=== PATIENT | female | born 1990 | race Hispanic/Latino ===

== ENCOUNTER 2017-04-18 19:53 | Observation (INO) | payer OTHER ==
[2017-04-18 20:09] VITALS: BP 135/92; PULSE 71; RESP 16; TEMP 98.2; O2SAT 100
--- NOTE | 2017-04-18 21:23 | ED PDOC ---
HPI: General Adult Time Seen by Provider: 04/18/17 20:07 Chief Complaint (Nursing): Eye Problem History Per: Patient Additional Complaint(s): Pt. states at approximately 1930 she was lying down when she suddenly developed L eye blurry vision which she describes as "squiggly lines." Symptoms lasted for approximately 30 minutes and resolved spontaneously. Pt. states 2 days ago she was having neck pain which prompted her to go to the chiropractor who performed an "adjustment" on her neck. Denies weakness, trauma, eye pain, fever. Past Medical History Reviewed: Historical Data, Nursing Documentation, Vital Signs Vital Signs: Last Vital Signs Temp 98.2 F 04/18/17 20:03 Pulse 71 04/18/17 20:03 Resp 16 04/18/17 20:03 BP 135/92 H 04/18/17 20:03 Pulse Ox 100 04/18/17 22:26 - Family History Family History: States: No Known Family Hx - Allergies Allergies/Adverse Reactions: Allergies Allergy/AdvReac Type Severity Reaction Status Date / Time No Known Allergies Allergy Verified 04/18/17 20:03 Review of Systems ROS Statement: Except As Marked, All Systems Reviewed And Found Negative Eyes: Positive for: Vision Change Physical Exam - Reviewed Nursing Documentation Reviewed: Yes Vital Signs Reviewed: Yes - Physical Exam Appears: Positive for: Well, Non-toxic, No Acute Distress Head Exam: Positive for: ATRAUMATIC, NORMAL INSPECTION, NORMOCEPHALIC Skin: Positive for: Normal Color, Warm. Negative for: Rash Eye Exam: Positive for: EOMI (without pain), PERRL, Conjunctival injection (b/l eyes). Negative for: Periorbital swelling, Periorbital tenderness ENT: Positive for: TM Is/Are (non-erythematous, non-bulging b/l), Pharyngeal Erythema Neck: Positive for: Normal, Painless ROM Cardiovascular/Chest: Positive for: Regular Rate, Rhythm Respiratory: Positive for: CNT, Normal Breath Sounds Gastrointestinal/Abdominal: Positive for: Normal Exam, Soft. Negative for: Tenderness Back: Positive for: Normal Inspection Extremity: Positive for: Normal ROM Neurologic/Psych: Positive for: Alert, Oriented - Laboratory Results Result Diagrams: 04/18/17 21:05 04/18/17 21:05 - ECG O2 Sat by Pulse Oximetry: 100 - Progress ED Course And Treament: Pt. evaluated by Dr. Bermeo immediately after initial encounter. Plan was made to r/o dissection due to chiropractic manipulation. Labs ordered. CTA head/neck, ct head w/o contrast ordered. ED OBSERVATION Date of observation admission: 04/18/17 Time of observation admission: 20:57 - Observation admission statement Patient is being placed in observation because:: L eye blurry vision - Progress Note Progress Note: 04/18/17 22:26 Pt. in no distress. Reports vision is still normal. 04/18/17 23:58 Dr. Bermeo discussed case with Dr. Newton, neurologist forest fire prevention specialist, who states if CT' s are normal pt. can be discharged with dx of ocular migraine despite having no headache. Disposition - Clinical Impression Clinical Impression: Vitreous floaters of left eye - Patient ED Disposition Is Patient to be Admitted: Transfer of Care (Signed out to Dianne BAEZ pending CT results.) - Disposition Disposition Time: 00:00 Condition: STABLE
[2017-04-18 21:28] LABS: BASO # 0.1 K/uL (0.0-0.2); BASO % 0.6 % (0.0-2.0); EOS # 0.1 K/uL (0.0-0.7); EOS % 1.2 % (0.0-4.0); HEMATOCRIT 37.1 % (34.0-47.0); LYMPH # 2.5 K/uL (1.0-4.3); LYMPH % 27.4 % (20.0-40.0); MEAN CELL VOLUME 87.9 fl (81.0-99.0); MEAN CORPUSCULAR HEMOGLOBIN 29.2 pg (27.0-31.0); MEAN CORPUSCULAR HGB CONC 33.2 g/dL (33.0-37.0); MEAN PLATELET VOLUME 8.1 fl (7.2-11.7); MONO # 0.8 K/uL (0.0-0.8); MONO % 9.1 % (0.0-10.0); NEUT # 5.7 K/uL (1.8-7.0); NEUT % 61.7 % (50.0-75.0); RED CELL DISTRIBUTION WIDTH 14.7 % (11.5-14.5); WHITE BLOOD COUNT 9.3 K/uL (4.8-10.8)
[2017-04-18 21:39] LABS: ALB/GLOB RATIO 1.6 (1.0-2.1); ALKALINE PHOSPHATASE 33 U/L (38-126); ALT/SGPT 29 U/L (9-52); AST/SGOT 23 U/L (14-36); BILIRUBIN,TOTAL 0.8 mg/dl (0.2-1.3); BLOOD UREA NITROGEN 25 mg/dl (7-17); CALCIUM 9.2 mg/dL (8.4-10.2); CARBON DIOXIDE 25 mmol/L (22-30); CHLORIDE 104 mmol/L (98-107); GFR AFRICAN-AMERICAN > 60; GLUCOSE,RANDOM 90 mg/dL (65-105); POTASSIUM 4.4 MMOL/L (3.6-5.0); SODIUM 139 mmol/l (132-148); TOTAL PROTEIN 7.2 G/DL (6.3-8.2)
[2017-04-18 21:49] LABS: PARTIAL THROMBOPLASTIN TIME 29.6 Seconds (25.6-37.1)
[2017-04-18] MEDS ORDERED: Sodium Chloride 0.9% 1,000 ML IV STA (22:21)
--- NOTE | 2017-04-18 23:42 | ED PDOC ---
HPI: General Adult Time Seen by Provider: 04/18/17 20:07 Chief Complaint (Nursing): Eye Problem Chief Complaint (Provider): Visual Disturbances History Per: Patient History/Exam Limitations: no limitations Onset/Duration Of Symptoms: Hrs (earlier today) Have you had recent travel within the past 21 days to any of the following countries: [place], [place], [place] or [place]?: No Current Symptoms Are (Timing): Still Present Additional Complaint(s): 26 year old female presents to ED with complaints of visual disturbances since earlier today. Describes disturbances as blurry lines and flashes in the visual field. Notes that she also has neck pain and recently had cervical manipulation by chiropractor x2 days ago. (-) headache or peripheral weakness. PCP: None Past Medical History Reviewed: Historical Data, Nursing Documentation, Vital Signs Vital Signs: Last Vital Signs Temp 98.2 F 04/18/17 20:03 Pulse 71 04/18/17 20:03 Resp 16 04/18/17 20:03 BP 135/92 H 04/18/17 20:03 Pulse Ox 100 04/18/17 22:26 - Family History Family History: States: No Known Family Hx - Allergies Allergies/Adverse Reactions: Allergies Allergy/AdvReac Type Severity Reaction Status Date / Time No Known Allergies Allergy Verified 04/18/17 20:03 Review of Systems ROS Statement: Except As Marked, All Systems Reviewed And Found Negative Eyes: Positive for: Vision Change (blurry lines and flashes in visual field) Musculoskeletal: Positive for: Neck Pain Neurological: Negative for: Weakness (peripheral weakness), Headache Physical Exam - Reviewed Nursing Documentation Reviewed: Yes Vital Signs Reviewed: Yes - Physical Exam Appears: Positive for: Non-toxic, No Acute Distress Head Exam: Positive for: ATRAUMATIC Skin: Positive for: Normal Color, Warm, Dry Eye Exam: Positive for: Normal appearance (Normal visual hart), PERRL Respiratory: Negative for: Respiratory Distress Neurologic/Psych: Positive for: Alert, Oriented. Negative for: Motor/Sensory Deficits - Laboratory Results Result Diagrams: 04/18/17 21:05 04/18/17 21:05 - ECG O2 Sat by Pulse Oximetry: 100 (RA) Pulse Ox Interpretation: Normal Medical Decision Making Medical Decision Makin Will obtain CTA HEAD & NECK to rule out dissection. Discussed with neurologist Dr. Newton, pending CT results. Provider is the attending of Kwan Ruiz PA-C. Scribe Attestation: Documented by Malena Truong acting as a scribe for Pelon Bermeo MD. MD Charlesibsara Attestation: All medical record entries made by the Scribe were at my direction and personally dictated by me. I have reviewed the chart and agree that the record accurately reflects my personal performance of the history, physical exam, medical decision making, and the department course for this patient. I have also personally directed, reviewed, and agree with the discharge instructions and disposition.
--- NOTE | 2017-04-18 23:50 | ED PDOC ---
ED Additional Note - Date & Time of Evaluation Date of Evaluation: 04/18/17 Time of Evaluation: 23:30 - Physician Additional Note Physician Additional Note: Patient of Kwan Ruiz PA-C. Provider is the attending physician. HPI History Of Present Illness: 26 year old female presents to ED with complaints of visual disturbances since earlier today. Describes disturbances as blurry lines and flashes in the visual field. Notes that she also has neck pain and recently had cervical manipulation by chiropractor x2 days ago. (-) headache or peripheral weakness. PCP: None Physical Exam - Constitutional Appears: Well, Non-toxic - Head Exam Head Exam: ATRAUMATIC - Eye Exam Eye Exam: Normal appearance (Normal visual hart) Pupil Exam: PERRL - Respiratory Exam Respiratory Exam: absent: Respiratory Distress - Neurological Exam Neurological exam: Alert, CN II-XII Intact, Oriented x3 Additional comments: Completely normal neurological exam Review of Symptoms - . Except As Marked, All Systems Reviewed And Found Negative Positive for: Vision Change (blurry lines and flashes in visual hart) Musculoskeletal: Positive for: Neck Pain Neurological: Negative for: Weakness (peripheral weakness), Headache Medical Decision Making Medical Decision Makin Will obtain CTA HEAD & NECK to r/o dissection Discussed with neurologist Dr. Newton, pending CT results. Scribe Attestation: Documented by Malena Truong acting as a scribe for Pelon Bermeo MD. Scribe Attestation: All medical record entries made by the Scribe were at my direction and personally dictated by me. I have reviewed the chart and agree that the record accurately reflects my personal performance of the history, physical exam, medical decision making, and the department course for this patient. I have also personally directed, reviewed, and agree with the discharge instructions and disposition.
--- NOTE | 2017-04-19 01:06 | ED PDOC ---
- Laboratory Results Result Diagrams: 04/18/17 21:05 04/18/17 21:05 - ECG O2 Sat by Pulse Oximetry: 100 - Progress ED Course And Treament: Case endorsed to automobile service writer from Joseph BAEZ pending CT reports CTA head: no acute findings CTA neck: no acute findings Patient educated on findings, discharged with instructions to follow up with Neurology (as per ED attending Dr Bermeo and Neurologist Dr. Bell previous discussion) Return to ED for worsening/concerning symptoms. Disposition - Clinical Impression Clinical Impression: Ocular migraine - POA Present On Arrival: None - Disposition Disposition: Routine/Home Disposition Time: :23 Condition: STABLE
--- NOTE | 2017-04-20 07:26 | CARD ---
APPROVED REPORT EKG Measurement Heart [id number] ID [id number] <Conclusion> Sinus rhythm with marked sinus arrhythmia Otherwise normal ECG
== END 2017-04-19 01:07 | disposition home or self-care (01) ==
LOC: H.ER 19:53 → H.EROBSV 20:57
PROVIDERS: ADMIT Emergency Medicine; ATTEND Emergency Medicine
DX: G43.B0 Ophthalmoplegic migraine, not intractable (principal)